=== PATIENT | female | born 1995 | race American Indian/Alaskan Native ===

== ENCOUNTER 2023-07-18 12:33 | Emergency (ER) | payer OTHER ==
[~2023-07-18] VITALS: Ht 160 cm; Wt 105.2 kg
[2023-07-18 13:39] LABS: INFLUENZA B NAA POSITIVE (NEGATIVE); RESPIRATORY SYNCYTIAL VIR NAA NEGATIVE (NEGATIVE)
[2023-07-18] MEDS ORDERED: MONTELUKAST SOD10 MG PO (14:41)
[2023-07-18] MEDS ORDERED: ADVAIR 250-501 EACH INH (14:48)
[2023-07-18] MEDS ORDERED: predniSONE 20 MG TAB PO ONE (15:30)
[2023-07-18] MEDS ORDERED: PREDNISONE20 MG PO (15:31)
[2023-07-18] MEDS ORDERED: VENTOLIN HFA18 GM INH (15:31)
[2023-07-18 15:40] VITALS: BP 134/81
== END 2023-07-18 15:40 | disposition home or self-care (01) ==
LOC: ED 12:33
PROVIDERS: Emergency Medicine
DX: J10.1 Influenza due to other identified influenza virus with other respiratory manifestations (principal); J45.901 Unspecified asthma with (acute) exacerbation; Z79.899 Other long term (current) drug therapy
CPT/HCPCS: 87502; J7512; U0002